=== PATIENT | female | born 1990 | race African-American/Black ===

== ENCOUNTER 2018-04-17 13:27 | Emergency (ER) | payer OTHER ==
[~2018-04-17] VITALS: Ht 160 cm; Wt 63.5 kg
--- NOTE | ~2018-04-17 | EKG ---
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
[2018-04-17 15:30] VITALS: BP 155/121
== END 2018-04-17 15:56 ==
LOC: ER 13:27
DX: F41.9 Anxiety disorder, unspecified (principal); F17.210 Nicotine dependence, cigarettes, uncomplicated; Z88.6 Allergy status to analgesic agent

== ENCOUNTER 2018-12-29 20:35 | Emergency (ER) | payer OTHER ==
[~2018-12-29] VITALS: Ht 160 cm; Wt 59.0 kg
[~2018-12-29 20:35] MED LIST: CIPROFLOXACIN500 M1 PO; PROZAC40 MG PO
[2018-12-29 20:36] VITALS: BP 122/79
== END 2018-12-29 21:34 | disposition home or self-care (01) ==
LOC: ER 20:35
DX: S40.012A Contusion of left shoulder, initial encounter (principal); I10 Essential (primary) hypertension; F17.210 Nicotine dependence, cigarettes, uncomplicated; Z88.8 Allergy status to other drugs, medicaments and biological substances; W22.8XXA Striking against or struck by other objects, initial encounter; Y93.89 Activity, other specified; Y92.89 Other specified places as the place of occurrence of the external cause; Y99.8 Other external cause status

== ENCOUNTER 2020-03-13 15:59 | Emergency (ER) | payer OTHER ==
[~2020-03-13] VITALS: Ht 160 cm; Wt 63.5 kg
--- NOTE | 2020-03-13 16:41 | EKG ---
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1990 Requested By: Fabi Whitmore Order Number: [id number] MD: Syed Choudhary Measurements Intervals [place] Rate: 89 P: 83 [place]: 175 QRS: 39 QRSD: 86 T: 37 QT: 386 QTc: 470 Interpretive Statements Sinus rhythm ST elev, probable normal early repol pattern Compared to ECG 04/17/2018 13:40:46 Sinus tachycardia no longer present Electronically Signed On 03-13-2020 16:41:32 CDT by Syed Choudhary [email or web address] <ELECTRONICALLY SIGNED> By: Syed Choudhary MD, [facility] 03/13/20 1641 1626 162 Syed Choudhary MD, [facility] /EPI
[2020-03-13 16:47] LABS: ABSOLUTE NEUTROPHILS 10.1 thou/uL (1.4-8.2); BASOPHILS 0.3 % (0.0-2.0); EOSINOPHILS 0.5 % (0.0-3.0); HEMATOCRIT 38.6 % (37.0-47.0); HEMOGLOBIN 12.8 gm/dL (12.0-15.0); LYMPHOCYTES 13.4 % (24.0-44.0); MCHC 33.2 g/dL (28.0-37.0); MCV 81.4 fL (80.0-100.0); MONOCYTES 5.1 % (1.0-8.0); PLATELET COUNT 235 thou/uL (150-400); POLYS 80.7 % (36.0-66.0); RBC 4.74 mil/uL (4.20-5.00); RDW 16.7 % (10.5-14.5); WBC 12.5 thou/uL (4.0-11.0)
[2020-03-13 16:55] LABS: ANION GAP 11 mmol/L (7-16); BUN 9 mg/dL (7-18); CHLORIDE 102 mmol/L (98-107); CO2 25 mmol/L (21-32); CREATININE 0.6 mg/dL (0.6-1.0); GLUCOSE 85 mg/dL (74-106); POTASSIUM 3.6 mmol/L (3.5-5.1); SODIUM 138 mmol/L (136-145)
[2020-03-13 17:04] LABS: ALBUMIN 4.1 g/dL (3.4-5.0); SGOT 21 U/L (15-37); SGPT 21 U/L (30-65); TOTAL BILIRUBIN 0.8 mg/dL (0.2-1.0); TOTAL PROTEIN 7.7 g/dL (6.4-8.2); TROPONIN-I <0.06 ng/mL (<0.06)
[2020-03-13 18:05] LABS: URINE BILIRUBIN NEGATIVE (Negative); URINE BLOOD NEGATIVE (Negative); URINE CLARITY CLEAR; URINE COLOR YELLOW; URINE GLUCOSE-RANDOM* NEGATIVE (Negative); URINE KETONES 1+ (Negative); URINE NITRITE-REFLEX NEGATIVE (Negative); URINE PROTEIN (DIPSTICK) NEGATIVE (Negative); URINE UROBILINOGEN 0.2 E.U./dl (0.2-1.0)
[2020-03-13 18:06] LABS: URINE LEUKOCYTES-REFLEX 1+ (Negative)
[2020-03-13 18:21] LABS: SQUAMOUS 4-10 Moderate /LPF (0-3); URINE WBC-REFLEX 6-15 Few /HPF (0-5)
[2020-03-13 18:22] LABS: CASTS None Seen /LPF (None Seen); CRYSTALS None Seen /LPF (None Seen); MUCUS 4-6 Moderate strn/LPF (None Seen); URINE RBC None Seen /HPF (0-2)
[2020-03-13] MEDS ORDERED: TESSALON PERLE100 MG PO (19:39)
[2020-03-13] MEDS ORDERED: KEFLEX500 M1 PO (19:39)
[2020-03-13 20:09] VITALS: BP 141/73
== END 2020-03-13 20:15 | disposition home or self-care (01) ==
LOC: ER 15:59
PROVIDERS: Physician Assistant
DX: N39.0 Urinary tract infection, site not specified (principal); M54.9 Dorsalgia, unspecified; R05 Cough; R42 Dizziness and giddiness; I10 Essential (primary) hypertension; F17.210 Nicotine dependence, cigarettes, uncomplicated; Z20.828 Contact with and (suspected) exposure to other viral communicable diseases